=== PATIENT | male | born 1995 | race Two or more races ===

== ENCOUNTER 2019-03-04 23:19 | Emergency (ER) | payer MEDICAID ==
[~2019-03-04] VITALS: Ht 175.3 cm; Wt 65.3 kg
[2019-03-05] MEDS ORDERED: TDAP [DIPH/PERTUSSIS/TET] 0.5 ML VIAL IM ONE ×2 (00:15→00:30)
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
--- NOTE | 2019-03-05 00:39 | NUR ---
PT LEFT FOR CT VIA GURNEY.
--- NOTE | 2019-03-05 00:55 | NUR ---
PT RETURNED FROM CT.
--- NOTE | 2019-03-05 01:24 | NUR ---
WOUND CARE IN PROGRESS AT THE BEDSIDE.
--- NOTE | 2019-03-05 02:10 | NUR ---
DR MILLER IS AT THE BEDSIDE STAPLING THE PT'S HEAD WOUNDS.
--- NOTE | 2019-03-05 02:33 | NUR ---
Patient discharged to home in stable condition. Written and verbal after care instructions given. Patient verbalizes understanding of instruction. Pt was instructed to have a wound check in2 days. Pt to have sutures removed in 7 days. VSS.
[2019-03-05 02:36] VITALS: BP 128/72
== END 2019-03-05 02:37 | disposition home or self-care (01) ==
LOC: ER 23:24
DX: S01.01XA Laceration without foreign body of scalp, initial encounter (principal); S01.412A Laceration without foreign body of left cheek and temporomandibular area, initial encounter; S50.01XA Contusion of right elbow, initial encounter; S09.8XXA Other specified injuries of head, initial encounter; W26.8XXA Contact with other sharp object(s), not elsewhere classified, initial encounter; Y93.55 Activity, bike riding; Y92.488 Other paved roadways as the place of occurrence of the external cause; Y99.8 Other external cause status
CPT/HCPCS: 12001; 12011; 70450; 70486; 73080; 90471; 90715; 99284; A6402; A6403 ×2